=== PATIENT | female | born 1965 | race Caucasian/White ===

== ENCOUNTER 2017-04-18 03:47 | Inpatient (IN) | payer OTHER ==
[~2017-04-18] VITALS: Ht 157.5 cm; Wt 123.8 kg
[~2017-04-18 03:47] MED LIST: ATIVAN0.5 M1 PO; GABAPENTIN300 M2 PO; HCTZ/LISINOPRIL1 TAB PO; LEXAPRO10 M1 PO; LISINOPRIL10 MG PO; PROPANOLOL PO; PROPRANOLOL HCL60 M3 PO; VENTOLIN H0.09 MG/Ac
--- NOTE | 2017-04-18 10:11 | Operative Report ---
Operative/Inv Procedure Report Surgery Date: 04/18/17 Name of Procedure: Laparoscopic Gastric Bypass Pre-Operative Diagnosis: Morbid Obesity BMI 53, DM, HTN, GERD Post-Operative Diagnosis: Same Estimated Blood Loss: less than 50ml Surgeon/Country Printer Apprentice: Charlie Woodruff DO, MD Anesthesia: general endotracheal tube IV Fluids: 1000 cc Drains: 10 Fr RUQ CHRISTINE Drain Specimens: None Complications: None Condition: Stable Operative Indication: This is a 51-year-old female who presented to the equal opportunity officer for bariatric surgery. After appropriate workup was completed I discussed with the patient the band, the sleeve, and the gastric bypass. The patient chose to undergo a gastric bypass. All risks including but not limited to bleeding, infection, leak, stricture, marginal ulcer, injury to surrounding bowel/esophagus/stomach/ liver/spleen, malabsorption/malnutrition, dumping syndrome, internal hernia/ small bowel obstruction, DVT/PE, and mortality of 03/999 patients were discussed in detail. The patient understood everything and decided to proceed. Operative/Procedure Note Note: The patient was brought to the operating room and placed on the table in supine position. Venodyne dockings were placed and adequate general endotracheal anesthesia was obtained. The patient was prepped and draped in standard surgical fashion. Began the procedure by making a 2 cm transverse incision supraumbilically and slightly to the left of the midline. Then using a 12 mm clear Visiport and a 10 mm 0 laparoscope the abdominal cavity was accessed. Great care was taken to go through the anterior rectus sheath, the posterior rectus sheath, and through the peritoneum. Once we entered the peritoneum the abdominal cavity was insufflated to 15 mmHg. Upon initial examination no obvious gross pathology was seen, omental adhesions were noted in the right upper quadrant from prior open cholecystectomy. 5 mm port was placed in the left lateral position and omental adhesions were lysed in the right upper quadrant until there was ample room for more ports. Accessory trocars were placed, 5 mm in the epigastrium for the Jaclyn liver retractor. The liver retractor was inserted and the liver was retracted anteriorly exposing the hiatus, no obvious hiatal hernia was seen. 5 mm ports were placed in the right and left upper quadrant, and a 12 mm right lateral port. Began the procedure by mobilizing the angle of His and the left brittani of the diaphragm. The stomach was retracted towards the feet and the peritoneum was lysed until the left brittani was clearly visualized. We then brought our attention to the lesser curvature, and at the second vessel we began accessing the retrogastric space. Was done using Harmonic scalpel maintaining hemostasis. Once the retrogastric space was accessed we began creating our pouch using 60 mm purple staple load 4. The pouch was created around an Maycol tube. Once the pouch was completely disconnected from the gastric remnant we examined the staple lines, some bleeding was noted and that was controlled using endoclips. We then brought our attention to the small bowel, the omentum was retracted above the transverse colon and the ligament of Treitz was identified. The small bowel was run 50 cm and divided using 60 mm jenkins staple load. 2 clips were placed on the proximal staple line which was the biliopancreatic limb. That limb was run to the ligament of Treitz to assure that that was the blind limb. Following this the omentum was divided using Harmonic scalpel. After the omentum was divided the small bowel was coming up to the gastric pouch with no tension. At that point an enterotomy was made 5 cm from the prior divided distal staple line, alf between the mesenteric and antimesenteric side. A gastrotomy was made anterior to the staple line. A side to side gastrojejunostomy was created using 45 mm purple staple load approximately 3-3-1/2 cm in diameter. The Maycol tube was passed through the common enterotomy, and the common enterotomy was closed using 2-0 Vicryl suture in a running fashion double layer. Following this the small bowel was clamped off distal to the anastomosis, and we preformed an air and a methylene blue leak test. No obvious leak was noted. All the methylene blue was suctioned out. The small bowel was then run 120 cm and an enterotomy was made on the antimesenteric side. Another enterotomy was made on the antimesenteric side of the biliopancreatic limb. A side to side functional end end jejunojejunostomy was created using 60 mm jenkins staple load. The common enterotomy was closed using a 60 mm jenkins staple load. Some bleeding was noted from the staple line and that was controlled using endoclips as well. The mesenteric defect was closed using 2-0 Tycron suture in a running fashion. At that point we examined both anastomoses no obvious bleeding was noted and both appeared intact. A 10 Lao CHRISTINE drain was placed through the right upper quadrant incision under the liver and over the spleen. All ports were removed under direct visualization, no obvious bleeding was noted. Skin was closed using 4-0 Monocryl. Steri-Strips and dressings were placed. The patient was successfully extubated and transferred to the recovery room in stable condition. The patient tolerated the procedure well with no complications. Findings: No hiatal hernia, 120 cm alimentary limb CC: Yonny SY,Shavon Rao
[2017-04-18 12:10] VITALS: BP 120/88
--- NOTE | 2017-04-18 12:13 | Admission Core Measures ---
Acute Coronary Syndrome (CM) ACS Core Measures Acute Coronary Syndrome Diagnosis No Congestive Heart Failure (NEW) CHF Core Measures Congestive Heart Failure Diagnosis No Cerebrovascular Accident (NEW) CVA Core Measures CVA/TIA Diagnosis No Venous Thromboembolism VTE Core Kenia (View Protocol) VTE Risk Factors Surgery No Mechanical VTE Prophylaxis d/t N/A MechProphylax Ordered No VTE Pharm Prophylaxis d/t NA PharmProphylax ordered Problem List As ranked by this Provider includes Assessment & Plan 1. Morbid obesity 2. Diabetes 3. Hypertension HOME MEDS Home Med List Escitalopram Oxalate (Lexapro) 10 MG TABLET 1 TAB PO DAILY ANXIETY (Reported) Gabapentin 300 MG CAPSULE 2 CAP PO DAILY PAIN (Reported) Lorazepam (Ativan) 0.5 MG TABLET 2 TAB PO TIDPRN PRN ANXIETY (Reported) Propranolol HCl 60 MG TABLET 1 TAB PO DAILY BP (Reported)
--- NOTE | 2017-04-18 12:17 | Patient Discharge Instructions ---
Discharge Instructions General Discharge Information You were seen/treated for: morbid obesity You had these procedures: laparoscopic tracee-en-y gastric bypass Watch for these problems: fever>101, worsening pain despite medications, intractable nausea/vomiting, inability to tolerate food or drink, inability to pass flatus or bowel movement, redness/drainage from incisions Other wound care: Do not soak wounds. You may remove outer dressings and shower 48hr after surgery. Leave steristrips in place- adhesive will dissolve over time. Diet Recommended Diet: Bariatric (stage 1) Activity Activity Self Limited: Yes Acute Coronary Syndrome Inclusion Criteria At DC or during hospital stay patient has or had the following: ACS DIAGNOSIS No Discharge Core Measures Meds if any: Prescribed or Continued at Discharge Meds if any: NOT Prescribed or Continued at Discharge Congestive Heart Failure Inclusion Criteria At DC or during hospital stay patient has or had the following: CHF DIAGNOSIS No Discharge Core Measures Meds if any: Prescribed or Continued at Discharge Meds if any: NOT Prescribed or Continued at Discharge Cerebrovascular accident Inclusion Criteria At DC or during hospital stay patient has or had the following: CVA/TIA Diagnosis No Discharge Core Measures Meds if any: Prescribed or Continued at Discharge Meds if any: NOT Prescribed or Continued at Discharge Venous thromboembolism Inclusion Criteria VTE Diagnosis No VTE Type NONE VTE Confirmed by (Test) NONE Discharge Core Measures - Per Current guidelines, there needs to be overlap - treatment for the first 5 days of Warfarin therapy. - If discharged on Warfarin prior to 5 days of - overlap therapy, the patient will need to be - assessed for post discharge needs including - *Post discharge parental anticoagulation - *Warfarin and/or parental anticoagulation education - *Follow up date to check INR post discharge At least 5 days overlap therapy as Inpatient No Meds if any: Prescribed or Continued at Discharge Note: Overlap Therapy is Warfarin and Anticoagulant Meds if any: NOT Prescribed or Continued at Discharge
--- NOTE | 2017-04-18 12:23 | Surg Short-stay <48hrs Dis Sum ---
Visit Information Visit Dates Admission Date: 04/18/17 Discharge Date: 04/20/17 Surgical Short Stay DC Summary Admission Diagnosis: Morbid Obesity BMI 53, DM, HTN, GERD Final Diagnosis: same as above, s/p Laparoscopic Gastric Bypass Procedure(s): Laparoscopic Gastric Bypass Summary/Significant Findings: Patient was admitted for elective laparoscopic tracee-en-y gastric bypass for morbid obesity, htn and diabetes. Procedure tolerated well without complications. CHRISTINE drain was removed prior to discharge. Pt tolerated stage 1 bariatric diet, pain is controlled with oral pain meds, and has ambulated without difficulty. Lovenox injections to be continued at home, to be given by her son. She has had asymptomatic bradycardia noted in her post-operative course , with a heart rate in the 50 bpm range, for which we have instructed her to contact her PCP / hospital food service worker to clarify its necessity. We have recommended that she either titrate this to a lower dose or discontinue it, and to follow up with her PCP within the next week for a blood pressure and heart rate check. Condition at Discharge: stable Discharge Disposition: home or self care Discharge instructions provided to patient/family: Yes Post discharge follow-up plan: one week follow up with call PCP today to discuss necessity of propranolol Copies to: Yonny SY,Shavon Rao
--- NOTE | 2017-04-18 14:48 | PN- Bariatrics ---
Subjective Subjective: POC Feeling well, walked in halls x2, dtv, taking sips stg1 diet- some belching, no n/v. no cp/sob. pain controlled w po pain meds Objective Vital Signs and I&Os Vital Signs Date Time Temp Pulse Resp B/P B/P Pulse O2 O2 Flow FiO2 Mean Ox Delivery Rate 04/18 1454 97.5 57 20 114/78 93 Room Air 04/18 1210 97.9 58 18 120/88 95 Nasal 2.0L Cannula *baseline HR 50-60s per pt Intake & Output 04/18 1600 04/18 0800 04/18 0000 04/17 1600 04/17 0800 04/17 0000 Intake Total Output Total Balance Patient 273 lb Weight Weight Reported by Patient Measurement Method Physical Exam: GEN- NAD CARD- S1S2 RRR PULM- CTAB ABD- obese, soft, ttp upper abd, incisions dressed w scant bloody staining, +bs EXT- calves soft nt, alps on Assessment/Plan Assessment/Plan A- POD0 sp lap tracee-en-y gastric bypass, pmhx htn, dm, mo, stable postop with appropriate pain, due to void. P- -stage1 bariatric diet now, then npopmn for UGI in am -IVF@ 125/h -prn pain meds -prn antiemetics -oob, ambulate -hep sq, alps -fsq6- riss coverage. awaiting most current fs -will rad Woodruff Core Measures Venous Thromboembolism VTE Risk Factors Surgery No Mechanical VTE Prophylaxis d/t N/A MechProphylax Ordered No VTE Pharm Prophylaxis d/t NA PharmProphylax ordered
[2017-04-18 14:54] VITALS: BP 114/78
[2017-04-18 22:33] VITALS: BP 128/80
[2017-04-19 06:59] VITALS: BP 130/86
[2017-04-19 08:18] LABS: ABSOLUTE BASOPHIL COUNT 0 /CUMM (0.0-0.2); ABSOLUTE EOSINOPHIL COUNT 0 /CUMM (0.0-0.7); ABSOLUTE GRANULOCYTE CT 7.6 /CUMM (1.4-6.5); ABSOLUTE LYMPH COUNT 1.6 /CUMM (1.2-3.4); BASOPHIL % 0.1 % (0.0-2.0); EOSINOPHIL % 0 % (0-5); GRANULOCYTE % 74.3 % (42.2-75.2); HEMATOCRIT 39.8 % (37-47); MEAN CORPUSCULAR HGB 27.8 PG (27.0-31.0); MEAN CORPUSCULAR HGB CONC 32.7 G/DL (33.0-37.0); PLATELET COUNT 245 /CUMM (130-400); RBC DISTRIBUTION WIDTH 14.9 % (11.5-14.5); RED BLOOD CELL CT 4.68 /CUMM (4.20-5.40); WHITE BLOOD CELL COUNT 10.3 /CUMM (4.8-10.8)
--- NOTE | 2017-04-19 11:15 | PN- Bariatrics ---
See Addendum Subjective Subjective: Patient reports pain is well controlled. States she tolerated a stage 1 diet and is complaining of a dry/cotton mouth due to npo status for her UGI this morning. States she is voiding, passing flatus and had a BM this morning. Reports that she has been up ambulating in the halls frequently. Offers no other complaints. Denies nausea/vomiting. Objective Vital Signs and I&Os Vital Signs Date Time Temp Pulse Resp B/P B/P Pulse O2 O2 Flow FiO2 Mean Ox Delivery Rate 04/19 0559 99.1 62 18 130/86 96 Room Air 04/18 2233 98.7 52 20 128/80 96 Room Air 04/18 1454 97.5 57 20 114/78 93 Room Air 04/18 1210 97.9 58 18 120/88 95 Nasal 2.0L Cannula Intake & Output 04/19 1600 04/19 0800 04/19 0000 04/18 1600 04/18 0800 04/18 0000 Intake Total 750 835 710 Output Total 440 442 300 Balance 310 393 410 Intake, IV 750 625 500 Intake, Oral 210 210 Number 1 Bowel Movements Output, 40 42 Drainage Output, Urine 400 400 300 Patient 273 lb Weight Weight Reported by Patient Measurement Method Physical Exam: Gen - resting comfortaby in a chair awake an alert in NAD Cardiac - S1S2 noted, RRR Lungs - CTAB Abd - Soft, obese, lap dressing mildly saturated, CHRISTINE drain with serosanguineous drainage, nontender on exam, no rebound or guarding noted. Ext - alps in place no calf tenderness Current Medications: Current Medications Sig/Oscar Start time Last Medication Dose Route Stop Time Status Admin Acetaminophen 1,000 MG Q6-PRN PRN 04/18 1230 AC N/A 1 UNIT IV Cefazolin Sodium 3,000 MG IQ8 04/18 1600 CAN IV 04/19 0001 Cefazolin Sodium 3,000 MG Q8H 04/18 1600 DC 04/18 Sodium Chloride 100 ML IV 04/19 0029 2341 Cefazolin Sodium 3,000 MG ONCE 04/18 0000 DC IV 04/18 2359 Escitalopram Oxalate 10 MG DAILY 04/19 1000 DC PO Escitalopram Oxalate 10 MG DAILY 04/19 1000 AC PO Heparin Sodium 5,000 UNIT Q8 04/18 1400 AC 04/19 (Porcine) SC 0553 Heparin Sodium 5,000 UNIT ONCE 04/18 0000 DC (Porcine) SC 04/18 2359 Hydrocodone Bitart/ 15 ML Q4-6 PRN PRN 04/18 1245 AC 04/19 Acetaminophen PO 0654 Hydrocodone Bitart/ 15 ML Q6P PRN 04/18 1230 DC Acetaminophen PO Hydromorphone HCl 1 MG Q3P PRN 04/18 1245 AC IV Hydromorphone HCl 0.5 MG Q3P PRN 04/18 1245 AC IV Insulin Aspart 0 Q6 04/18 1200 AC SC Lorazepam 0.5 MG Q4P PRN 04/18 1245 AC IV Ondansetron HCl 4 MG Q6P PRN 04/18 1230 AC IV Pantoprazole Sodium 40 MG DAILY 04/19 1000 AC IV Potassium Chloride 20 MEQ .Q8H 04/18 1230 AC 04/19 Dextrose/Sodium 1,000 ML IV 0732 Chloride Propranolol HCl 60 MG DAILY 04/19 1000 DC PO Propranolol HCl 60 MG DAILY 04/19 1000 AC PO Simethicone 40 MG Q6P PRN 04/18 1230 AC PO Results Last 48 Hours of Labs: Laboratory Tests 04/19 0657 Chemistry Sodium (137 - 145 mmol/L) 146 H Potassium (3.5 - 5.1 mmol/L) 4.4 Chloride (98 - 107 mmol/L) 109 H Carbon Dioxide (22 - 30 mmol/L) 25 Anion Gap (5 - 16) 12 BUN (7 - 17 mg/dL) 12 Creatinine (0.5 - 1.0 mg/dL) 0.6 Estimated GFR (>60 ml/min) > 60 BUN/Creatinine Ratio (7 - 25 %) 20.0 Phosphorus (2.5 - 4.5 mg/dL) 3.4 Magnesium (1.6 - 2.3 mg/dL) 1.9 Hematology CBC w Diff NO MAN DIFF REQ WBC (4.8 - 10.8 /CUMM) 10.3 RBC (4.20 - 5.40 /CUMM) 4.68 Hgb (12.0 - 16.0 G/DL) 13.0 Hct (37 - 47 %) 39.8 MCV (81.0 - 99.0 FL) 85.0 MCH (27.0 - 31.0 PG) 27.8 MCHC (33.0 - 37.0 G/DL) 32.7 L RDW (11.5 - 14.5 %) 14.9 H Plt Count (130 - 400 /CUMM) 245 MPV (7.4 - 10.4 FL) 11.0 H Gran % (42.2 - 75.2 %) 74.3 Lymphocytes % (20.5 - 51.1 %) 15.7 L Monocytes % (1.7 - 9.3 %) 9.9 H Eosinophils % (0 - 5 %) 0 Basophils % (0.0 - 2.0 %) 0.1 Absolute Granulocytes (1.4 - 6.5 /CUMM) 7.6 H Absolute Lymphocytes (1.2 - 3.4 /CUMM) 1.6 Absolute Monocytes (0.10 - 0.60 /CUMM) 1.0 H Absolute Eosinophils (0.0 - 0.7 /CUMM) 0 Absolute Basophils (0.0 - 0.2 /CUMM) 0 Assessment/Plan Assessment/Plan 51 F POD 1 s/p lap tracee-en-y gastric bypass who is recovering well Upper GI study today Keep npo, ice chips ok Advance to stage 1 bariatric diet if UGI is neg D/c IVF when taking adequate oral intake Analgesics/antiemetics prn Cont FS q6 Novlin sq on board Home meds on board GI/DVT ppx on board Encourage ambulation, IS Alps, ambulation Anticipate d/c in 1 day Seen and eval with Dr. Munoz Core Measures Venous Thromboembolism VTE Risk Factors Surgery No Mechanical VTE Prophylaxis d/t N/A MechProphylax Ordered No VTE Pharm Prophylaxis d/t NA PharmProphylax ordered
--- NOTE | 2017-04-19 11:55 | RADIOLOGY REPORT ---
EXAMINATION: FL UPPER GI SERIES CLINICAL INFORMATION: Status post gastric bypass. Post-op day 1. Evaluate for leak/stricture. COMPARISON: None TECHNIQUE: A preliminary gettering filament machine operator view of the abdomen is obtained. A water-soluble contrast upper GI series with fluoroscopy and spot imaging was performed. The patient ingested 30 mL of Gastroview without difficulty and was evaluated in the upright and recumbent positions. FINDINGS: The gettering filament machine operator view demonstrates numerous surgical clips in the upper abdomen. There is a drain in the midline. The bowel gas pattern is unremarkable. Contrast flows easily through the esophagus into the gastric remnant without evidence of leak or obstruction. The gastrojejunostomy is patent and contrast flows easily into the jejunum. Contrast also flows easily through the jejunojejunal anastomosis. FLUOROSCOPY TIME: 45 seconds. NUMBER OF IMAGES: 7 images. IMPRESSION: No evidence of obstruction or leak status post gastric bypass procedure.
[2017-04-19 14:04] VITALS: BP 110/62
[2017-04-19 22:37] VITALS: BP 115/74
[2017-04-20 06:30] VITALS: BP 132/82
--- NOTE | 2017-04-20 09:22 | PN- Bariatrics ---
Subjective Subjective: Reports tolerating stage 1 diet. Upper GI study negative for leak / obstruction yesterday. No nausea. Passing flatus and having bms. Ambulating well. No dizziness. No shortness of breath. No chest pains. Voiding well. She is planning on talking with her PCP about continuing propranolol given her asymptomatic bradycardia recognized in the post-op period. Her son will be doing her lovenox injections, as he has experience with this in the past. She anticipates discharge to home this afternoon and wants her prescriptions sent to [facility] [place]. Objective Vital Signs and I&Os Vital Signs Date Time Temp Pulse Resp B/P B/P Pulse O2 O2 Flow FiO2 Mean Ox Delivery Rate 04/20 0630 97.9 50 18 132/82 96 Room Air 04/19 2237 97.8 54 20 115/74 95 Room Air 04/19 1404 97.6 56 20 110/62 96 Room Air 04/19 1238 48 156/84 Intake & Output 04/20 1600 04/20 0800 04/20 0000 04/19 1600 04/19 0700 04/19 0000 Intake Total 227 100 4550 750 1175 Output Total 40 40 440 742 Balance 247 473 0730 310 433 Intake, IV 525 375 875 750 875 Intake, Oral 30 270 210 300 Number 1 1 Bowel Movements Output, 40 40 40 42 Drainage Output, Urine 400 700 Physical Exam: General - alert & oriented x 3. comfortable. no acute distress. Lungs - clear bilaterally. no w/r/r. Cardiac - s1s2. reg, rate 60s currently Abdomen - soft. CHRISTINE drain with serosang drainage. dressings c/d/i. expected michael- incisional tenderness. Extremities - warm bilaterally. no c/c/e. calves soft and nontender b/l. Current Medications: Current Medications Sig/Oscar Start time Last Medication Dose Route Stop Time Status Admin Acetaminophen 1,000 MG Q6-PRN PRN 04/18 1230 AC N/A 1 UNIT IV Escitalopram Oxalate 10 MG DAILY 04/19 1000 DC PO Escitalopram Oxalate 10 MG DAILY 04/19 1000 AC 04/19 PO 1238 Heparin Sodium 5,000 UNIT Q8 04/18 1400 AC 04/20 (Porcine) SC 0502 Hydrocodone Bitart/ 15 ML Q4-6 PRN PRN 04/18 1245 AC 02/09 Acetaminophen PO 0738 Hydromorphone HCl 1 MG Q3P PRN 04/18 1245 AC IV Hydromorphone HCl 0.5 MG Q3P PRN 04/18 1245 AC IV Insulin Aspart 0 Q6 04/18 1200 AC SC Lorazepam 0.5 MG Q4P PRN 04/18 1245 AC IV Ondansetron HCl 4 MG Q6P PRN 04/18 1230 AC IV Pantoprazole Sodium 40 MG DAILY 04/19 1000 AC 04/19 IV 1238 Potassium Chloride 20 MEQ .Q8H 04/18 1230 AC 04/20 Dextrose/Sodium 1,000 ML IV 0734 Chloride Propranolol HCl 60 MG DAILY 04/19 1000 DC PO Propranolol HCl 60 MG DAILY 04/19 1000 AC PO Simethicone 40 MG Q6P PRN 04/18 1230 AC PO Results Last 48 Hours of Labs: Laboratory Tests 04/19 656 Chemistry Sodium (137 - 145 mmol/L) 146 H Potassium (3.5 - 5.1 mmol/L) 4.4 Chloride (98 - 107 mmol/L) 109 H Carbon Dioxide (22 - 30 mmol/L) 25 Anion Gap (5 - 16) 12 BUN (7 - 17 mg/dL) 12 Creatinine (0.5 - 1.0 mg/dL) 0.6 Estimated GFR (>60 ml/min) > 60 BUN/Creatinine Ratio (7 - 25 %) 20.0 Phosphorus (2.5 - 4.5 mg/dL) 3.4 Magnesium (1.6 - 2.3 mg/dL) 1.9 Hematology CBC w Diff NO MAN DIFF REQ WBC (4.8 - 10.8 /CUMM) 10.3 RBC (4.20 - 5.40 /CUMM) 4.68 Hgb (12.0 - 16.0 G/DL) 13.0 Hct (37 - 47 %) 39.8 MCV (81.0 - 99.0 FL) 85.0 MCH (27.0 - 31.0 PG) 27.8 MCHC (33.0 - 37.0 G/DL) 32.7 L RDW (11.5 - 14.5 %) 14.9 H Plt Count (130 - 400 /CUMM) 245 MPV (7.4 - 10.4 FL) 11.0 H Gran % (42.2 - 75.2 %) 74.3 Lymphocytes % (20.5 - 51.1 %) 15.7 L Monocytes % (1.7 - 9.3 %) 9.9 H Eosinophils % (0 - 5 %) 0 Basophils % (0.0 - 2.0 %) 0.1 Absolute Granulocytes (1.4 - 6.5 /CUMM) 7.6 H Absolute Lymphocytes (1.2 - 3.4 /CUMM) 1.6 Absolute Monocytes (0.10 - 0.60 /CUMM) 1.0 H Absolute Eosinophils (0.0 - 0.7 /CUMM) 0 Absolute Basophils (0.0 - 0.2 /CUMM) 0 Assessment/Plan Assessment/Plan This 51 female with hx morbid obesity (MBI 51), niddm, htn, gerd, is POD#2 s/p lap tracee-en-y gastric bypass, recovering well tolerating stage 1 diet oob/ambulating well hep sc - dvt ppx. to continue lovenox injections at home for continued dvt ppx protonix - gi ppx CHRISTINE drain removed no labs ordered today she will be calling her PCP regarding the propranolol, as she has been bradycardic post-op will d/w Core Measures Venous Thromboembolism VTE Risk Factors Surgery No Mechanical VTE Prophylaxis d/t N/A MechProphylax Ordered No VTE Pharm Prophylaxis d/t NA PharmProphylax ordered No Mechanical VTE Prophylaxis d/t N/A MechProphylax Ordered No VTE Pharm Prophylaxis d/t NA PharmProphylax ordered
[2017-04-20] MEDS ORDERED: HYDROCODON-ACET15 ML PO (09:39)
[2017-04-20] MEDS ORDERED: PROTONIX40 M3 PO (09:39)
[2017-04-20 14:33] VITALS: BP 137/93
== END 2017-04-20 15:49 | DRG 621 ==
LOC: SDA 03:47 → ENRESERV 10:44 → ENTRNSPT 11:47 → EDTRNSPTSTS 12:11 → EDTRNSPT 12:11 → CMPTRNSPT 12:17 → 2NB 12:18 → ENPENDDIS 04-20 09:53 → ENTRNSPT 04-20 15:34 → CMPTRNSPT 04-20 15:41 → 2NB 04-20 15:49
PROVIDERS: Physician Assistant Surgical
PROC: 0D164ZA Bypass Stomach to Jejunum, Percutaneous Endoscopic Approach (ICD-10-PCS; principal; 2017-04-18)
PROC: 3E0T3BZ Introduction of Anesthetic Agent into Peripheral Nerves and Plexi, Percutaneous Approach (ICD-10-PCS; 2017-04-18)
DX: E66.01 Morbid (severe) obesity due to excess calories (principal); E11.42 Type 2 diabetes mellitus with diabetic polyneuropathy; Z68.43 Body mass index [BMI] 50.0-59.9, adult; I10 Essential (primary) hypertension; K21.9 Gastro-esophageal reflux disease without esophagitis; G47.30 Sleep apnea, unspecified; Z85.42 Personal history of malignant neoplasm of other parts of uterus; Z87.891 Personal history of nicotine dependence
CPT/HCPCS: 2NBP; 36415; 74240; 82436; C9399; J0690; J1644; J2405; J7042; Q9968; S5012